=== PATIENT | male | born 1995 | race African-American/Black ===

== ENCOUNTER 2017-05-11 22:43 | Emergency (ER) | payer OTHER, BC ==
[~2017-05-11] VITALS: Ht 154.9 cm; Wt 84.0 kg
[~2017-05-11 22:43] MED LIST: CEPH500C3 PO; IBUP800T23 PO
[2017-05-11 22:45] VITALS: BP 149/88; PULSE 67; RESP 16; TEMP 98.7; O2SAT 100
[2017-05-12 00:23] VITALS: BP 111/79; PULSE 80; RESP 20; O2SAT 100
[2017-05-12] MEDS ORDERED: CYCLOBENZAPRINE HCL 10 MG TAB PO ONE (00:30)
[2017-05-12] MEDS ORDERED: IBUPROFEN 800 MG TAB PO ONE (00:30)
[2017-05-12] MEDS ORDERED: IBUP1TAB7 PO (00:34)
[2017-05-12] MEDS ORDERED: CYCL10TA PO (00:34)
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
== END 2017-05-12 00:37 | disposition home or self-care (01) ==
LOC: NEPD 22:43
DX: S39.012A Strain of muscle, fascia and tendon of lower back, initial encounter (principal); V89.2XXA Person injured in unspecified motor-vehicle accident, traffic, initial encounter
CPT/HCPCS: 99283